=== PATIENT | female | born 1980 | race Two or more races ===

== ENCOUNTER 2019-09-05 09:06 | Emergency (ER) | payer SELFPAY ==
[~2019-09-05] VITALS: Ht 142.2 cm; Wt 64.4 kg
[2019-09-05 09:13] VITALS: BP 134/82
[2019-09-05] MEDS ORDERED: HYDROcodone/APAP 5/325MG 1 TAB TABLET PO ONE (09:30)
--- NOTE | 2019-09-05 09:32 | PHYS DOC ---
Adult General Chief Complaint Chief Complaint: THUMB HPI HPI Patient is a 39 year old female who presents with yesterday slammed the car door on her right thumb. Patient states yesterday the pain was 10/10 but today is 7 out of 10. She states is a stabbing pain. Patient states there is blood oozing from under the nail and the nail is slightly raised. Patient denies taking any pain medications today. (LORNE PORTILLO APRN) Review of Systems Review of Systems Musculoskeletal: Denies back pain. Right thumb joint pain [] All other systems were reviewed and found to be within normal limits, except as documented in this note. (LORNE PORTILLO APRN) Current Medications Current Medications Current Medications Medications (Trade) Dose Ordered Sig/Shabnam Start Time Stop Time Status Last Admin Dose Admin Acetaminophen/ Hydrocodone Bitart (Lortab 5/325) 1 tab 1X ONCE 09/05/19 09:30 09/05/19 09:31 DC 09/05/19 09:37 1 TAB (ELLIOT MCKEON DO) Allergies Allergies Allergies Coded Allergies Type Severity Reaction Last Updated Verified No Known Drug Allergies 09/05/19 No (ELLIOT MCKEON DO) Physical Exam Physical Exam Constitutional: Well developed, well nourished, no acute distress, non-toxic appearance. [] Skin: Thumbnail slightly raised up off the nail bed. Warm, dry, no erythema, no rash. [] Extremities: PIP into the thumb tenderness, no cyanosis, no clubbing, Limited ROM intact, 1+ edema. [] Neurologic: Alert and oriented X 3, normal motor function, normal sensory function, no focal deficits noted. [] Psychologic: Affect normal, judgement normal, mood normal. [] (LORNE PORTILLO APRN) Current Patient Data Vital Signs Vital Signs Date Time Temp Pulse Resp B/P (MAP) Pulse Ox O2 Delivery O2 Flow Rate FiO2 09/05/19 09:37 16 99 Room Air 09/05/19 09:13 97.9 76 134/82 (99) 97.9 (ELLIOT MCKEON DO) EKG EKG [] (LORNE PORTILLO APRN) Radiology/Procedures Radiology/Procedures [] (LORNE PORTILLO APRN) Impressions: [facility] [address] [place] [address] IMAGING REPORT Signed PATIENT: EDITH JIMENEZACCOUNT: [id number] : 1980 LOCATION: ER AGE: 39 SEX: F EXAM STATUS: REG ER ORD. PHYSICIAN: LORNE PORTILLO APRN REASON: injury, crushed rt thumb in door PROCEDURE: HAND RIGHT 3V AP, lateral, and oblique views of the right hand were performed. History: Crushed thumb in door Comparison: none. No fracture or dislocation is seen. The joint spaces are normal in appearance. There is swelling underneath the nail bed of the first digit consistent with injury. Electronically signed by: Fareed Laboy MD (09/05/2019 9:56 AM) [facility] DICTATED and SIGNED BY: FAREED LABOY MD DATE: 09/05/19 0956 (LORNE PORTILLO APRN) Course & Med Decision Making Course & Med Decision Making Right thumb 1+ swelling to the tip. Patient can bend the thumb but has limited range of motion due to pain. Tender to palpation to the tip of the thumb. The nail is slightly raised up off the nail bed but there does not look to be any damage to the nail bed. The nail is not broken itself. There is blood oozing from underneath it. Patient states she had a tetanus shot one year ago. There is no laceration to the finger. Skin pink warm and dry. Radial pulse strong present. Denies numbness or tingling. Xray shows No fracture or dislocation is seen. The joint spaces are normal in appearance. There is swelling underneath the nail bed of the first digit consistent with injury. Alumniform splint placed on right thumb. (LORNE PORTILLO APRN) Dragon Disclaimer Dragon Disclaimer This electronic medical record was generated, in whole or in part, using a voice recognition dictation system. (LORNE PORTILLO APRN) Splinting Splinting : Location: Right thumb Pre-Made Type: metal (finger splint) Pre-Proc Neuro Vasc Exam: normal Post-Proc Neuro Vasc Exam: normal, unchanged from pre-exam (ELLIOT MCKEON DO) Departure Departure Impression: Primary Impression: Crushing injury Disposition: HOME, SELF-CARE Condition: STABLE Referrals: NO PCP (PCP) Patient Instructions: Crush Injury, Fingers or Toes, [id number] Additional Instructions: Keep the thumb covered and clean. Let the nail fall off by itself. Take medication as prescribed. Scripts Hydrocodone/Apap 5-325 (NORCO 5-325 TABLET) 1 Each Tablet 1 TAB PO PRN Q6HRS PRN for PAIN, #5 TAB 0 Refills Prov: LORNE PORTILLO APRN 09/05/19 Attending Signature Attending Signature I have reviewed the PA/VERIFYING SPECIALIST's note and plan of care. I was available for consultation as needed during the patient's visit in the emergency department. I agree with the clinical impression, plan, and disposition. (ELLIOT MCKEON DO) LORNE PORTILLO APRN Sep 05, 2019 09:32 ELLIOT MCKEON DO Sep 07, 2019 12:37
--- NOTE | 2019-09-05 09:59 | RAD ---
AP, lateral, and oblique views of the right hand were performed. History: Crushed thumb in door Comparison: none. No fracture or dislocation is seen. The joint spaces are normal in appearance. There is swelling underneath the nail bed of the first digit consistent with injury. Electronically signed by: Fareed Laboy MD (09/05/2019 9:56 AM) [facility]
[2019-09-05] MEDS ORDERED: HYDR-3164 PO (10:04)
== END 2019-09-05 10:15 | disposition home or self-care (01) ==
LOC: ER 09:06
DX: S67.01XA Crushing injury of right thumb, initial encounter (principal); W23.0XXA Caught, crushed, jammed, or pinched between moving objects, initial encounter; Y93.89 Activity, other specified; Y92.89 Other specified places as the place of occurrence of the external cause; Y99.8 Other external cause status
CPT/HCPCS: 29130; 73130; 99284

== ENCOUNTER 2020-03-30 18:57 | Emergency (ER) | payer SELFPAY ==
[~2020-03-30] VITALS: Ht 137.2 cm; Wt 144.0 kg
[~2020-03-30 18:57] MED LIST: HYDR-3164 PO
[2020-03-30 20:21] VITALS: BP 138/83
[2020-03-30] MEDS ORDERED: METH4TAB2 PO (20:21)
[2020-03-30] MEDS ORDERED: FAMO-63 PO (20:21)
[2020-03-30] MEDS ORDERED: INDO50CA15 PO (20:21)
--- NOTE | 2020-03-30 20:21 | PHYS DOC ---
Past Medical History Past Medical History: No Pertinent History Past Surgical History: No Surgical History Smoking Status: Never Smoker Alcohol Use: Rarely Additional Information: beer Drug Use: None General Adult EDM: Chief Complaint: KNEE SWELLING HPI: HPI: Patient is a 40 year old female who presents with complaint of right knee pain for the last week. 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 Patient states that pain is getting worse over the last week and she rates it as moderate. She states that it is worsened with bending. She denies any known injuries. [] Review of Systems: Review of Systems: Constitutional: Denies fever or chills. [] Respiratory: Denies cough or shortness of breath. [] Cardiovascular: Denies chest pain or edema. [] Musculoskeletal: Complains of right knee pain. [] Integument: Denies rash. [] Neurologic: Denies headache, focal weakness or sensory changes. [] Heart Score: Risk Factors: Risk Factors: DM, Current or recent (<one month) smoker, HTN, HLP, family history of CAD, obesity. Risk Scores: Score 0 - 3: 2.5% MACE over next 6 weeks - Discharge Home Score 4 - 6: 20.3% MACE over next 6 weeks - Admit for Clinical Observation Score 7 - 10: 72.7% MACE over next 6 weeks - Early Invasive Strategies Allergies: Allergies: Allergies Coded Allergies Type Severity Reaction Last Updated Verified No Known Drug Allergies 09/05/19 No Physical Exam: PE: Constitutional: Well developed, well nourished, no acute distress, non-toxic appearance. [] Cardiovascular: Regular rate and rhythm [] Lungs & Thorax: Bilateral breath sounds clear to auscultation [] Skin: Warm, dry, no erythema, no rash. [] Extremities: Examination of right knee demonstrates tenderness over the patella. [] Neurologic: Alert and oriented X 3, no focal deficits noted. [] Current Patient Data: Vital Signs: Vital Signs Date Time Temp Pulse Resp B/P (MAP) Pulse Ox O2 Delivery O2 Flow Rate FiO2 03/30/20 19:00 98.4 84 16 142/78 (99) 99 Room Air 98.4 EKG: EKG: [] Radiology/Procedures: Radiology/Procedures: [] Course & Med Decision Making: Course & Med Decision Making Pertinent Labs and Imaging studies reviewed. (See chart for details) [] Rah Disclaimer: Rah Disclaimer: This electronic medical record was generated, in whole or in part, using a voice recognition dictation system. 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 DO 03/30/20 Indomethacin (INDOMETHACIN) 50 Mg Capsule 1 CAP PO BID PRN for knee pain for 10 Days, #20 CAP 0 Refills with food Prov: KAM HUGHES Jr. DO 03/30/20 Famotidine (PEPCID) 20 Mg Tablet 20 MG PO BID, #30 TAB Prov: KAM HUGHES Jr. DO 03/30/20 Justicifation of Admission Dx: Justifications for Admission: Justification of Admission Dx: N/A KAM HUGHES Jr. DO Mar 30, 2020 20:21
--- NOTE | 2020-03-30 20:21 | RAD ---
EXAM: AP, oblique and lateral views right knee DATE: 03/30/2020 7:35 PM INDICATION: Reason: knee pain / Spl. Instructions: / History: COMPARISON: No Prior FINDINGS: No evidence of acute fracture or dislocation. Small right knee joint effusion. Joint spaces are preserved without significant degenerative/proliferative change. Mild prepatellar soft tissue swelling. IMPRESSION: No evidence of acute fracture or dislocation. Electronically signed by: Clifton Tinoco MD (03/30/2020 8:18 PM) [facility]
== END 2020-03-30 20:21 | disposition home or self-care (01) ==
LOC: ER 18:57
DX: M22.41 Chondromalacia patellae, right knee (principal)
CPT/HCPCS: 73562; 99283

== ENCOUNTER 2020-06-17 06:59 | Emergency (ER) | payer SELFPAY ==
[~2020-06-17] VITALS: Ht 142.2 cm; Wt 71.0 kg
[~2020-06-17 06:59] MED LIST changes: +FAMO-63 PO; +INDO50CA15 PO; +METH4TAB2 PO
--- NOTE | 2020-06-17 07:07 | PHYS DOC ---
Past Medical History Past Medical History: No Pertinent History Past Surgical History: No Surgical History Smoking Status: Never Smoker Alcohol Use: Occasionally Drug Use: None General Adult EDM: Chief Complaint: CHEST PAIN HPI: HPI: Patient is a 40-year-old female presenting to the ED with intermittent chest pain since 7 PM last night. Patient describes pain as deep and "a pressure through to her back" that is not positional, unrelated to taking deep breaths or eating and rates it at a 5 out of 10. Patient denies any loss of consciousness, nausea, vomiting, palpitations, and abdominal pain. Patient endorses tingling in the fingers, anxiousness relieved by deep breaths. Patient is not taking any medications. Patient states she was in contact with her cousin who was diagnosed with COVID-19 one month ago, but took a COVID-19 test 2 weeks ago which was negative along with denying subjective fever, coughing, or shortness of breath. Patient's last menstrual period was 1 month ago and is expecting a period within the next week, and denies being . Also patient has a family history of cardiovascular disease and DVT. Denies trauma. Review of Systems: Review of Systems: Constitutional: Denies fever or chills Eyes: Denies redness or eye pain HENT: Denies nasal congestion or sore throat Respiratory: Denies cough or shortness of breath Cardiovascular: Endorses chest pain, denies palpitations GI: Denies abdominal pain, nausea, or vomiting : Denies dysuria or hematuria Musculoskeletal: Endorses back pain, denies joint pain Integument: Denies rash or skin lesions Neurologic: Denies headache, focal weakness, endorses sensory changes Complete systems were reviewed and found to be within normal limits, except as documented in this note. Heart Score: HEART Score for Chest Pain: HEART Score for Chest Pain Response (Comments) Value History Slighlty/Non-Suspicious 0 ECG Normal 0 Age < 45 0 Risk Factors 1 or 2 Risk Factors 1 Total 1 Risk Factors: Risk Factors: DM, Current or recent (<one month) smoker, HTN, HLP, family history of CAD, obesity. Risk Scores: Score 0 - 3: 2.5% MACE over next 6 weeks - Discharge Home Score 4 - 6: 20.3% MACE over next 6 weeks - Admit for Clinical Observation Score 7 - 10: 72.7% MACE over next 6 weeks - Early Invasive Strategies Family History: Family History: Patient has a family history of cardiovascular disease, father had WI in his 60s, brother had a blood clot in his leg or lung. Allergies: Allergies: Allergies Coded Allergies Type Severity Reaction Last Updated Verified No Known Drug Allergies 09/05/19 No Physical Exam: PE: Constitutional: Well developed, well nourished, no acute distress, non-toxic appearance HENT: Normocephalic, atraumatic Eyes: PERRL, EOMI, conjunctiva normal, no discharge Neck: Normal range of motion, no tenderness, supple Lungs & Thorax: Bilateral breath sounds clear to auscultation, no wheezing Cardiovascular: Normal rate regular rhythm no murmurs, peripheral pulses +2 bilaterally on upper and lower extremity, no JVD Abdomen: Soft, no tenderness Skin: Warm, dry, no erythema, no rash Back: No tenderness, no CVA tenderness Extremities: No tenderness, ROM intact, no edema Neurologic: Alert and oriented X 3, normal motor function, normal sensory function, no focal deficits noted Psychologic: Affect normal, judgment normal EKG: EK06/17/2020 07:11:06 heart rate 84 bpm, normal sinus rhythm, QRS 76 ms, QT/QTc 374/445 ms, movement artifact is noted Radiology/Procedures: Radiology/Procedures: PROCEDURE: CHEST PA & LATERAL Chest radiograph 06/17/2020 7:29 AM INDICATION: Chest pain COMPARISON: None available TECHNIQUE: Frontal and lateral views of the chest are provided. FINDINGS: The cardiomediastinal silhouette is within normal limits. There are no pleural effusions. There is no pulmonary vascular congestion. There is no pneumothorax. The lungs are clear. No significant osseous abnormality is identified. IMPRESSION: No acute cardiopulmonary process. Electronically signed by: Misty Treviño MD (06/17/2020 8:03 AM) [id number] Course & Med Decision Making: Course & Med Decision Making Pertinent Labs and Imaging studies reviewed. (See chart for details) Patient is a 40-year-old female presenting the ED with intermittent chest pain since 7 PM last night. Patient's pain is non-constant, not positional, and is not associated with any discernible event. Patient does appear to be anxious regarding the chest pain and states that taking deep breaths helps. Considering her normal ECG and troponin, deep breathing alleviating symptoms while causing tingling in her fingers, patient is most likely experiencing panic attacks or anxiety. Patient has a heart score of 1 and a PERC score of 0. D-dimer also without acut eprocess. CXR stable. Patient stable for discharge with outpatient follow-up with PCP. Discussed findings and plan with patient, who acknowledges understanding and agreement. Rah Disclaimer: Rah Disclaimer: This electronic medical record was generated, in whole or in part, using a voice recognition dictation system. Departure Departure Impression: Primary Impression: Atypical chest pain Additional Impression: Hypokalemia Disposition: HOME, SELF-CARE Condition: STABLE Referrals: NO PCP (PCP) Patient Instructions: Chest Pain (Nonspecific), Amme-pc-Anaj, Chest Wall Pain, Oopi-fi-Mtde, Hypokalemia, Potassium Content of Foods Additional Instructions: Take over the counter Tylenol and/or Ibuprofen for pain or discomfort. Justicifation of Admission Dx: Justifications for Admission: Justification of Admission Dx: N/A PERC Rule for PE PERC Rule for PE PERC Rule for PE Response (Comments) Value Age > 50: No 0 HR > 100: No 0 Sa02 on room air <95%: No 0 Unilateral leg swelling: No 0 Hemoptysis: No 0 Recent surgery or trauma: No 0 Prior PE or DVT: No 0 Hormone use: No 0 Total 0 MCKEONELLIOT DO Jun 17, 2020 07:07
[2020-06-17] MEDS ORDERED: ASPIRIN 325 MG TABLET PO ONE (07:15)
[2020-06-17 08:02] LABS: BASO % 1 % (0-3); EOS # 0.1 x10^3/uL (0.0-0.7); EOS % 1 % (0-3); HEMATOCRIT 39.3 % (36.0-47.0); HEMOGLOBIN 13.6 g/dL (12.0-15.5); LYMPH # 1.7 x10^3/uL (1.0-4.8); LYMPH % 24 % (24-48); MEAN CORPUSCULAR HEMOGLOBIN 32 pg (25-35); MEAN CORPUSCULAR HGB CONC 35 g/dL (31-37); MEAN CORPUSCULAR VOLUME 92 fL (79-100); MONO # 0.6 x10^3/uL (0.0-1.1); MONO % 9 % (0-9); NEUT # 4.5 x10^3/uL (1.8-7.7); NEUT % 65 % (31-73); PLATELET COUNT 249 x10^3/uL (140-400); RED BLOOD COUNT 4.26 x10^6/uL (3.50-5.40); RED CELL DISTRIBUTION WIDTH 12.5 % (11.5-14.5)
[2020-06-17 08:04] LABS: CALCIUM 7.9 mg/dL (8.5-10.1); CREATININE 0.7 mg/dL (0.6-1.0); GFR 92.7; POTASSIUM 3.4 mmol/L (3.5-5.1)
[2020-06-17 08:06] LABS: BILIRUBIN,URINE NEGATIVE (NEG); CLARITY,URINE CLEAR; COLOR,URINE YELLOW; NITRITE,URINE NEGATIVE (NEG); PROTEIN,URINE NEGATIVE (NEG-TRACE); UROBILINOGEN,URINE 0.2 mg/dL (0.2 mg/dL)
--- NOTE | 2020-06-17 08:06 | RAD ---
Chest radiograph 06/17/2020 7:29 AM INDICATION: Chest pain COMPARISON: None available TECHNIQUE: Frontal and lateral views of the chest are provided. FINDINGS: The cardiomediastinal silhouette is within normal limits. There are no pleural effusions. There is no pulmonary vascular congestion. There is no pneumothorax. The lungs are clear. No significant osseous abnormality is identified. IMPRESSION: No acute cardiopulmonary process. Electronically signed by: Misty Treviño MD (06/17/2020 8:03 AM) [id number]
[2020-06-17 08:10] LABS: ALBUMIN 3.2 g/dL (3.4-5.0); ALBUMIN/GLOBULIN RATIO 0.9 (1.0-1.7); MAGNESIUM 1.8 mg/dL (1.8-2.4); TOTAL BILIRUBIN 0.3 mg/dL (0.2-1.0); TOTAL PROTEIN 6.9 g/dL (6.4-8.2)
[2020-06-17 08:11] LABS: PROTHROMBIN TIME PATIENT 12.4 SEC (11.7-14.0)
[2020-06-17 08:14] LABS: U PREG PATIENT NEGATIVE (NEG)
[2020-06-17 08:24] LABS: AMPHETAMINE/METHAMPHETAMINE NEG (NEG); BARBITURATES NEG (NEG); BENZODIAZEPINES NEG (NEG); CANNABINOIDS NEG (NEG); COCAINE NEG (NEG); METHADONE NEG (NEG); OPIATES NEG (NEG); PHENCYCLIDINE NEG (NEG)
[2020-06-17 08:26] LABS: D-DIMER 0.28 ug/mlFEU (0.00-0.50)
[2020-06-17 08:30] LABS: BACTERIA,URINE FEW /HPF (0-FEW); RBC,URINE 0 /HPF (0-2); SQUAMOUS EPITHELIAL CELL,UR FEW /LPF
[2020-06-17] MEDS ORDERED: POTASSIUM CHLORIDE 20 MEQ TABLET.ER. PO ONE (08:30)
[2020-06-17 08:45] VITALS: BP 129/70
--- NOTE | 2020-06-17 17:10 | EKG ---
[facility] [address] [place] [address] Test Date: 2020-06-17 Test Time: 07:11:06 Pat Name: EDITH JIMENEZ Department: Room: Gender: F Risk Compliance Analyst: : 1980 Requested By: ELLIOT MCKEON Order Number: [id number] Reading MD: Measurements Intervals [place] Rate: 84 P: 59 [place]: 150 QRS: 42 QRSD: 76 T: 44 QT: 374 QTc: 445 Interpretive Statements SINUS RHYTHM NO SPECIFIC ECG ABNORMALITIES RI6.02 No previous ECG available for comparison
== END 2020-06-17 09:04 | disposition home or self-care (01) ==
LOC: ER 06:59
DX: R07.89 Other chest pain (principal); E87.6 Hypokalemia; M54.9 Dorsalgia, unspecified
CPT/HCPCS: 36415; 71046; 80053; 80307; 81001; 81025; 83690; 83735; 84484; 85025; 85379; 85610; 85730; 87086; 87147; 93005; 99285